=== PATIENT | male | born 1955 | race Caucasian/White ===

== ENCOUNTER → 2020-07-07 09:26 | Outpatient (BNVA) | payer BC, SELFPAY | PROVIDERS: Visit Provider Family Medicine Adult Medicine | DX: Z00.00 Encounter for general adult medical examination without abnormal findings (principal); R73.03 Prediabetes; R03.0 Elevated blood-pressure reading, without diagnosis of hypertension; J44.1 Chronic obstructive pulmonary disease with (acute) exacerbation; G89.29 Other chronic pain; R53.83 Other fatigue | CPT/HCPCS: 80053; 80061; 83036; 84443; 85025 ==

== ENCOUNTER → 2021-01-10 09:50 | Outpatient (BNVA) | payer MEDICARE, SELFPAY | PROVIDERS: Visit Provider Family Medicine Adult Medicine | DX: E78.5 Hyperlipidemia, unspecified (principal); I10 Essential (primary) hypertension; R53.83 Other fatigue; R73.03 Prediabetes | CPT/HCPCS: 80053; 80061; 83036; 85025 ==

== ENCOUNTER → 2022-02-28 10:14 | Outpatient (BNVA) | payer MEDICARE, SELFPAY | PROVIDERS: PCP Family Medicine Adult Medicine; Visit Provider Family Medicine Adult Medicine | DX: E78.5 Hyperlipidemia, unspecified (principal); R73.03 Prediabetes; I10 Essential (primary) hypertension | CPT/HCPCS: 80053; 80061; 83036 ==

== ENCOUNTER → 2022-03-11 08:11 | Outpatient (BNVA) | payer MEDICARE, SELFPAY | PROVIDERS: PCP Family Medicine Adult Medicine; Referring Provider Family Medicine Adult Medicine; Visit Provider Specialist | DX: M17.11 Unilateral primary osteoarthritis, right knee (principal); M25.361 Other instability, right knee; R09.02 Hypoxemia | CPT/HCPCS: 20610; 73560; 73565; 99203; 99204; J1100; J2795; J3301 ==

== ENCOUNTER 2022-03-18 13:18 | Outpatient (RCR) | payer MEDICARE, SELFPAY | END 2022-03-21 23:59 | disposition home or self-care (01) | LOC: SPT 13:18 | PROVIDERS: PCP Family Medicine Adult Medicine; Referring Provider Specialist; Visit Provider Specialist | DX: M25.561 Pain in right knee (principal) | CPT/HCPCS: 97162 ==

== ENCOUNTER 2022-03-22 06:00 | Outpatient (RCR) | payer MEDICARE, SELFPAY | END 2022-04-21 23:59 | disposition home or self-care (01) | LOC: SPT 06:00 | PROVIDERS: PCP Family Medicine Adult Medicine; Referring Provider Specialist; Visit Provider Specialist | DX: M25.561 Pain in right knee (principal) | CPT/HCPCS: 97110 ==

== ENCOUNTER → 2022-04-29 14:49 | Outpatient (BNVA) | payer MEDICARE, SELFPAY | PROVIDERS: PCP Family Medicine Adult Medicine; Visit Provider Specialist | DX: M17.11 Unilateral primary osteoarthritis, right knee (principal); M25.361 Other instability, right knee | CPT/HCPCS: 99214 ==

== ENCOUNTER 2022-05-08 06:00 | Outpatient (CLI) | payer MEDICARE, SELFPAY | END 2022-05-08 06:01 | disposition home or self-care (01) | LOC: LAB 07-18 08:57 | PROVIDERS: PCP Family Medicine Adult Medicine; Visit Provider Specialist | DX: Z01.89 Encounter for other specified special examinations (principal) | CPT/HCPCS: 80053; 81001; 85025 ==

== ENCOUNTER → 2022-05-08 12:29 | Day surgery (SDC) | payer MEDICARE, SELFPAY | PROVIDERS: PCP Family Medicine Adult Medicine; Visit Provider Specialist | DX: Z01.818 Encounter for other preprocedural examination (principal) | CPT/HCPCS: 93005; J2795 ==

== ENCOUNTER → 2022-06-10 12:49 | Outpatient (BNVA) | payer MEDICARE, SELFPAY | PROVIDERS: PCP Family Medicine Adult Medicine; Visit Provider Specialist | DX: M17.11 Unilateral primary osteoarthritis, right knee (principal) | CPT/HCPCS: 99214 ==

== ENCOUNTER 2022-06-11 13:20 | Observation (INO) | payer MEDICARE, SELFPAY ==
[2022-06-04 09:21] VITALS: BMI 36.0
[2022-06-04 10:36] LABS: Add Urine Culture? Yes; Add Urine Microscopic? YES; Bacteria Urine TRACE /hpf; Bilirubin Urine Neg (Negative); Blood Urine 2+ (Negative); Glucose Urine UA Norm (Normal); Ketones Urine Negative (Negative); Leukocyte Esterase Urine 1+ (Negative); Nitrate Urine Negative (Negative); Protein Urine Neg (Negative); RBC Urine 0-4 /hpf (0-2); Specific Gravity, Urine 1.015 (1.005-1.030); Squamous Epithelial Cell Urine 0-4 /hpf (0-5); Urine Appearance Clear (CLEAR); Urine Color Yellow (Yellow); Urobilinogen Urine Norm (Negative); WBC Urine 25-40 /hpf (0-5); pH Urine 5 (5-7)
--- NOTE | 2022-06-04 16:23 | P.ANESASSM_ITS ---
Pre-Anesthetic Assessment Height/Weight: Height 1.7 m Weight 104.326 kg Preop Diagnosis: Knee OA Operation Date: 06/11/22 07:00 Proposed Procedures p Right Total Knee Arthroplasty 19172,M17.10(Right) - Ana Powell MD Familial anesthetic complications: none Was Beta Kenny taken within 24 hours: N/A Was Clonidine taken within 24 hours: N/A Social Tobacco and No alcohol Exam alert, oriented x 3 and regular rate & rhythm Diminished breaths sounds b/l Airway Submandibular: within normal limits Cervical ROM: within normal limits Mallampati: Class II Comments: Comments: Upper partial Pulmonary Chronic Obstructive Pulmonary Disease CV/HEM Hypertension EKG 05/08/22 Interpretive Statements SINUS RHYTHM POSSIBLE LEFT ATRIAL ENLARGEMENT? [-0.1mV P-WAVE IN V1/V2] No previous ECG available for comparison Electronically Signed On 05-08-2022 17:20:14 CDT by Robert Lund M.D. [email or web address] Hepatic None reported GI None reported Metabolic Diabetes Mellitus and Hyperlipidemia [facility] [place] Osteoarthritis/DJD Neuropsych Anxiety, Depression and Neuropathy (Post herpetic neuralgia ) RLS Anesthetic Plan ASA status: 3 Anesthesia: Anesthesia Evaluation and Regional (specify below) (Spinal w/ adductor canal block for post op pain control) Other: We discussed risk and benefits of general vs spinal anesthesia including DVT risk, infection, paralysis/catastrophic nerve injury, back bruising/pain, PDPH, conversion to general in case of spinal, PONV, sore throat (sometimes severe), corneal abrasion, positioning and peripheral nerve injuries, life threatening allergic reaction, post operative ICU admission requiring prolonged intubation, stroke, heart attack, , post operative delirium and/or post operative cognitive decline, and rare incidences of recall (under general anesthesia). We discussed risk and benefits of nerve block for post op pain control including management of pain and titration of pain medications as signs/symptoms of nerve block wearing off begin to appear and/or prior bed. We discussed risk of failed nerve block, vascular injury or other vital structure injury, abscess/infection, LAST, and nerve injury. Patient elects spinal w/ adductor canal block for post op pain control. Risk of > 500 ml blood loss (7ml/kg in children): No Medications/Allergies Home Medications Medication Instructions Recorded Confirmed Last Taken Type lisinopril 20 mg tablet 20 mg PO DAILY High blood Pressure 03/01/22 06/04/22 Unknown Rx 90 days #90 tabs albuterol sulfate 2.5 mg (3 mL) inhalation QID PRN 05/22/22 06/04/22 Unknown Rx shortness of breath or wheezing #75 mL albuterol sulfate 90 mcg/actuation 2 puff inhalation Q6H PRN 05/22/22 06/04/22 Unknown Rx aerosol inhaler shortness of breath or wheezing #18 grams atorvastatin 20 mg tablet 20 mg PO DAILY 90 days #90 tabs 05/22/22 06/04/22 Unknown Rx bupropion HCl 150 mg tablet,12 hr 150 mg PO QAM 90 days #90 tabs 05/22/22 06/04/22 Unknown Rx sustained-release fluticasone propionate 110 1 puff inhalation BID #12 grams 05/22/22 06/04/22 Unknown Rx mcg/actuation HFA aerosol inhaler (Flovent HFA) gabapentin 300 mg capsule 300 mg PO TID post-shingles nerve 05/22/22 06/04/22 Unknown Rx pain #90 caps meloxicam 7.5 mg tablet 7.5 mg PO DAILY Joint pain #30 tabs 05/22/22 06/04/22 Unknown Rx sertraline 50 mg tablet 50 mg PO DAILY #90 tabs 05/22/22 06/04/22 Unknown Rx tramadol 50 mg tablet 50 mg PO Q8H PRN pain 30 days #45 05/22/22 06/04/22 Unknown Rx tabs sulfamethoxazole 800 1 tab PO BID #20 tabs 06/04/22 Unknown Rx mg-trimethoprim 160 mg tablet (Bactrim DS) Allergies Allergy/AdvReac Type Severity Reaction Status Date / Time cephalexin [From Keflex] Allergy rash Verified 05/22/22 15:10 hydrocodone AdvReac Intermediate itching Verified 05/22/22 15:10 PFSH Anesthesia Medical History Allergic rhinitis due to allergen Anxiety and depression Chronic leg pain COPD (chronic obstructive pulmonary disease) Fatigue Herpes zoster ophthalmicus of left eye Herpes zoster virus infection of face and ear nerves History of torn meniscus of left knee History of torn meniscus of right knee Hoarseness of voice Hyperlipidemia Hypertension Obesity (BMI 35.0-39.9 without comorbidity) Osteoarthritis Post-herpetic trigeminal neuralgia Pre-diabetes Smoker unmotivated to quit Surgical History Hx of appendectomy Hx of bilateral cataract extraction Hx of hernia repair Social History Smoking and tobacco status: current every day smoker (1ppd) cigarettes Packs smoked per day: 1.5 Years cigarettes smoked: 47 Second hand smoke exposure: Yes Alcohol intake: never Caregiver/support person: Yes Lives independently: Yes Household members: spouse Marital status: service: No Current occupational status: disabled History of recent travel: No Current gender identity: Male Special donald needs: No Data Anesthesia : 06/04/22 08:42 06/04/22 08:42 Short CBC 06/04/22 Range/Units 08:42 WBC Cancelled Hgb Cancelled Hct Cancelled MCV Cancelled Plt Count Cancelled Neut % (Auto) Cancelled Neut # (Auto) Cancelled BMP 06/04/22 08:42 Sodium Cancelled Potassium Cancelled Chloride Cancelled Carbon Dioxide Cancelled BUN Cancelled Creatinine Cancelled Glucose Cancelled Calcium Cancelled Urine 06/04/22 Range/Units 09:30 Urine Color Yellow (Yellow) Urine Appearance Clear (CLEAR) Urine pH 5 (5-7) Ur Specific [place] 1.015 (1.005-1.030) Urine Protein Neg (Negative) Urine Glucose (UA) Norm (Normal) Urine Ketones Negative (Negative) Urine Nitrate Negative (Negative) Urine Bilirubin Neg (Negative) Ur Leukocyte Esterase 1+ H (Negative) Urine RBC 0-4 H (0-2) /hpf Urine WBC 25-40 H (0-5) /hpf Cardiac Studies: No Data to Display
[2022-06-11] VITALS (26 sets, daily range): BP systolic 107–144; BP diastolic 58–79; PULSE 75–109; RESP 14–23; TEMP 36.4–36.9; O2SAT 92–95
[2022-06-11] MEDS: acetaminophen 1,000 MG/100 ML PIGGYBACK 400 MG IV ×3 (06:10→21:00)
[2022-06-11] MEDS: sodium chloride 0.9% 1,000 ML 30 ML IV (06:10)
[2022-06-11] MEDS: CELEcoxib 200 mg Capsule 400 MG PO (06:11)
--- NOTE | 2022-06-11 06:25 | P.ANESUD_ITS ---
Pre-Anesthetic Update Pre-Anesthetic Assessment: Date of Surgery/Procedure: 06/11/22 Preop Thea gnosis: DJD right knee Proposed Procedure: Operation Date: 06/11/22 07:00 Proposed Procedures p Right Total Knee Arthroplasty 95101,M17.10(Right) - Ana Powell MD Any changes to Pre-Anesthetic Assessment?: No Last Intake: Intake Last Liquid Date 06/10/22 Last Liquid Time 18:00 Last Solid Date 06/10/22 Last Solid Time 18:00 Vitals: Temperature 98.4 F 06/11/22 05:47 Temperature Source Temporal Artery S can 06/11/22 05:47 Pulse Rate 90 06/11/22 05:47 Pulse Rhythm 06/11/22 05:47 Pulse Strength 3+ Normal 06/11/22 05:47 Respiratory Rate 18 06/11/22 05:47 Blood Pressure 136/79 06/11/22 05:47 Blood Pressure Afshan n 98 06/11/22 05:47 Pulse Oximetry 93 06/11/22 05:47 Oxygen Delivery Me thod 06/11/22 05:47 Exam: Pre-Anes Outpt Exam: alert, oriented x 3, clear to auscultation bilaterally and regular rate & rhythm Cardiac Studies: No Data to Display
--- NOTE | 2022-06-11 06:57 | W.PM.OPSUD ---
Surgery/Procedure H&P Update DATE OF PROCEDURE: June 11, 2022 DATE H&P PERFORMED: 06/10/22 H&P UPDATE INFORMATION: I have reviewed H&P completed within last 30 days, I have examined patient prior to procedure, No changes to prior documentation and H&P is in [facility] on date indicated PREOP DIAGNOSIS: DJD right knee PLANNED PROCEDURE: Operation Date: 06/11/22 07:00 Proposed Procedures p Right Total Knee Arthroplasty 90891,M17.10(Right) - Ana Powell MD Related Problem List Diagnoses (1) Primary osteoarthritis of right knee:
[2022-06-11] MEDS: vancomycin 1,000 MG in sodium chloride 0.9% 250 ML 250 MG IV (07:02)
[2022-06-11 07:18] LABS: Basophils # 0.1 10^3/uL (0.0-0.1); Basophils % 0.7 %; Eosinophils # 0.5 10^3/uL (0.0-0.8); Hematocrit 46.3 % (42.0-52.0); Hemoglobin 14.8 g/dL (11.7-16.6); Lymphocytes # 1.6 10^3/uL (0.8-4.8); Lymphocytes % 17.5 %; Mean Corpuscular Volume 103.3 fl (80-94); Mean Platelet Volume 9.5 fL (7.4-10.4); Monocytes # 1.2 10^3/uL (0.2-0.9); Neutrophils # 5.59 10^3/uL (1.8-7.7); Neutrophils % 62.1 %; Nucleated Red Blood Cells % 0 %; Platelet Count 267 10^3/cmm (130-400); Red Blood Count 4.48 10^6/uL (4.1-5.3); Red Cell Distribution Width 12.6 % (12.1-15.1)
--- NOTE | 2022-06-11 07:24 | ANES.PROC ---
Anesthesia Procedures Procedure/Date: 06/11/22 Nerve Block ^: Nerve Block 1: Main Anesthesia: spinal anesthesia block Time Out Performed: Yes Consent: requested by attending/covering physician, from patient, risks and benefits reviewed and patient agrees to proceed Nerve block location: adductor canal Anesthesia monitors applied: pulse oximetry and BP cuff Nerve block position: semi sitting Anesthetic Used: ropivicaine 0.5% Amount of anesthesia used (mL): 20 Ultrasound used to: recognize landmarks, visualize and ID brachial plexus and visualize and ID femerol nerve Nerve Stimulator Used?: No Interscalene/Femoral BLK: 4 stimuplex 21 g needle used for position and inplane approach, visualize local anesthetic spread and no vascular puncture identified Injection: neg aspiration of heme Patient Tolerated Procedure: well Complications: none Additional Comments: After time out sterile prep, using sterile technique, and using real time US guidance for target selection needle was inserted with real time visualization of needle entry and real time visualization of needle advancement toward intended target. Negative aspiration. LA injected incrementally with negative aspiration every 5 cc and real time US visualization of LA spread throughout procedure. Tolerated well. Image(s) saved.
[2022-06-11 07:43] LABS: Alanine Aminotransferase 28 U/L (0-41); Albumin Level 4.5 g/dL (3.5-5.2); Alkaline Phosphatase 81 U/L (40-130); Anion Gap 14.7 (5-19); Aspartate Amino Transferase 18 U/L (0-40); Blood Urea Nitrogen 23 mg/dL (8-23); Calcium 9.4 mg/dL (8.5-10.5); Carbon Dioxide 28 mmol/L (22-29); Chloride 99 mmol/L (98-107); Glomerular Filtration Rate 74.1 mL/min (90-130); Glucose 117 mg/dL (65-115); Osmolality Calculated 289 mOsm/kg (285-295); Potassium 4.7 mmol/L (3.5-5.1); Sodium 137 mmol/L (136-145); Total Bilirubin 0.2 mg/dL (0.15-1.2); Total Protein 6.5 g/dL (6.6-8.7)
[2022-06-11] MEDS: vancomycin 1,000 MG SDV 2000 MG IRRIGATION (08:16)
[2022-06-11] MEDS: vancomycin 1,000 MG SDV 1000 MG XX (08:16)
[2022-06-11] MEDS: tranexamic acid 1,000 mg/10mL SDV 1000 MG IV (09:01)
--- NOTE | 2022-06-11 10:10 | P.OP_ITS ---
Operative Report Date of procedure: June 11, 2022 Pre-op diagnosis: Primary osteoarthritis right knee with flexion contracture Post-op diagnosis: Primary osteoarthritis right knee with flexion contracture Post-op findings: Severe degenerative osteoarthritic change with flexion contracture and movement of cartilage Procedure done: Right total knee arthroplasty Implants: The [place] total knee system with a size 6 triathlon beaded posterior stabilized femur right, a triathlon titanium tibial component size 5 beaded, a triathlon X3 posterior stabilized tibial bearing insert size 5 X 13 mm and a beaded triathlon titanium asymmetric patella size 35 x 10 mm Specimens removed/disposition: Bone, disposed of Pathology: none sent Surgeon: Ana Powell Ornamental Ironworker Helper: [facility] operating room technicians Anesthesia: MAC (With spinal, ASA 3) Estimated blood loss (mL): 200 Tourniquet time (min): 59 (At 250 mmHg) IV fluids (mL): 800 Urine output (mL): 400 Complications: None Findings: Severe degenerative osteoarthritic changes with flexion contracture and large osteophytes Condition: stable Disposition: PACU (Then to floor for postoperative rehabilitation and pain management) Brief History: Tirso Ennis is a 66-year-old gentleman who presented to my office with complaints of severe right knee pain limiting his activities of daily living significantly. Prior to being scheduled for operative intervention, the patient had formal physical therapy and also had cortisone injections to his knee. He took anti-inflammatory medications as well. The patient continued with the pain rating 5 out of 10. Cortisone lasted him only 1 day. Physical therapy was of some benefit, but it did not give him adequate functional relief or improvement in his activities of daily living that was significant. After these outcomes, the patient wished to proceed with operative intervention in the form of total knee arthroplasty. He had been scheduled earlier in April, but insurance approval had not been obtained at that time. Today the patient presents for total knee arthroplasty. Consents have been signed in the office and questions answered. Procedure: The patient was brought to the operating theater, and after undergoing adequate spinal anesthesia supplemented with adductor canal block and MAC, ASA 3, the right lower extremity was prepped with Dura-Prep and draped in usual fashion following placement of a tourniquet high on the leg. The leg was then draped free. Following prepping and draping, the leg was exsanguinated, and the tourniquet was elevated to 250 mmHg for a total tourniquet time of 59 minutes.? Prior to elevation of the tourniquet, but following exposure of the site of surgery, a surgical pause was performed. At the time of the surgical pause, we confirmed the site and side of surgery. Additionally, we confirmed the appropriate and timely administration of preoperative antibiotics, vancomycin 1 g and Transexemic acid 1 g.? The availability of equipment was confirmed, and the patient's identity was verbalized as well.? An additional transexemic acid 1 g was given at the end of the surgical procedure as well. Following the surgical pause, an incision was made centering over the patella continuing proximally and distally as necessary to allow access to the knee joint. Dissection continued through skin and soft tissues using a scalpel. Hemostasis was obtained using electrocautery. The skin incision was followed by a median parapatellar arthrotomy. The leg was extended and the patella was everted. Following this, the leg was returned to flexed position.? There was eburnation particularly of the medial femoral condyle.? There were large osteophytes circumferentially about the trochlear groove as well as the patella and medial tibial plateau.? Resection of osteophytes was accomplished to allow for appropriate placement of the intraoperative jogging system.? Distal femur was exposed, and a drill hole was made in this for placement of the distal femoral jig. The distal femoral jig was set at 5? of valgus. The distal femoral cutting block was then placed in appropriate position, and an aníbal wing was used to confirm an appropriate amount of distal femur would be resected.? The distal femoral resection was accomplished with 10 mm of bone being resected distally due to preoperative flexion contracture.? After the distal femoral resection was accomplished, the femur was measured, and it measured a size 6.? Medial lateral dimension also measured a size 6.? A size 6 femoral cutting block was placed in position, and we were then able to accomplish the anterior, posterior and chamfer cuts. This jig was then removed, and the notch guide was placed in position. With the notch guide in appropriate position, the notch was excised including resection of the anterior and posterior cruciate ligaments. This notch was to allow for the posterior stabilized femoral component. At this point, the femur was prepared and attention was directed to the proximal tibia.? The posterior knee retractor was placed along with medial and lateral retracto rs. Further resection of the menisci was accomplished as we had better visualization. A complete meniscectomy was performed both medially and laterally with care being taken to protect the popliteus. Retractors were then placed so that the proximal tibia was well visualized. A drill hole was then made in the tibia for placement of the intramedullary guide. This guide was placed so that approximately 2 mm of bone would be resected from the deficient medial tibial plateau. The intramedullary guide was utilized supplemented with an extramedullary guide to assure appropriate alignment for the proximal tibial resection. The proximal tibial jig was then evaluated, pinned in position, and the proximal tibial resection was accomplished without difficulty.? The jig was removed, and the proximal tibia was measured. It measured a size 5.? Further resection of osteophytes was able to be accomplished at this time.? We also removed osteophytes from the posterior femoral condyles following proximal t ibial resection.? We then attempted a trial reduction with a size 5 by 9 mm.? A medial release was accomplished.? The femoral component was placed in position for the trial reduction, and the knee was placed through range of motion.? We then increased to a size 5 x 11 mm insert, and subsequently, insert size was increased to 5 x 13 mm.? With this, there was appropriate patellar tracking. Extension was noted to be full as well.? With had excellent varus valgus alignment, and the knee was stable to varus valgus stress as well.? Therefore, these were the chosen components.? There was full extension and flexion without lift off and the rotation of the tibia was marked.? Alignment was checked from the hip to the ankle, and this was noted to be appropriate as well. Attention was then directed to the patella. The patella was measured with a caliper.? We resected sufficient patella to leave approximately 14 mm of patella remaining.? Measurements of the patella then indicated that a size asymmetric 35 mm x 10 mm was the appropriate patellar size. We then placed the jig to drill for the 3 pegs of the press-fit patella, and these drill holes were made without incident. A trial patella was then placed, and the knee was placed through range of motion. The patella was noted to track nicely without evidence of subluxation.? The femur was prepared for a press-fit femur by drilling 2 holes for the femoral pegs.? All trial components were subsequently removed. The tibial tray was then pinned into position, and we broached the tibia for the stem of the tibial component.? Subsequently, 4 drill holes were made for placement of the press-fit tibia.? This was accomplished without difficulty. Care was taken to assure appropriate rotation of the tibia as well as appropriate position on the proximal tibia. The tibial tray was completely seated on the proximal tibia. Following broaching, the tibial guide was removed, and all surfaces were copiously irrigated. The surfaces were then dried and a bone plug was placed into the distal femur.? Exparel was also subsequently injected. The Tritanium tibia was impacted into position.? The beaded femur was then impacted into position in a cementless fashion. The tibial insert was placed. The patella was pressed into position with a patellar clamp.? The knee was then copiously irrigated with betadine and saline and suctioned dry. Attention was then directed to closure. Closure was accomplished with 0 Vicryl in the fascial tissues.? Following this, a 2-0 Monocryl was used in the subcutaneous tissues, and the skin was closed with skin mary.? Care was taken to assure an excellent subcutaneous as well as skin closure.? A sterile dressing was then placed consisting of Dermabond Prineo, Telfa, OpSite, sterile soft roll including over the foot, and an Gary wrap. The patient was returned the Recovery Room in a satisfactory condition. X-rays were obtained and reviewed there.? The patient will be discharged to the floor for postoperative rehabilitation and pain management. Related Problem List Diagnoses (1) Primary osteoarthritis of right knee: (2) Status post total right knee replacement not using cement:
--- NOTE | 2022-06-11 10:11 | XRR_ITS ---
PROCEDURE INFORMATION: Exam: XR Right Knee Exam date and time: 06/11/2022 10:13 AM Age: 67 years old Clinical indication: Device placement; Joint replacement hardware; Prior surgery; Surgery date: Post-operative (0-2 days); Surgery type: Status post total knee arthroplasty TECHNIQUE: Imaging protocol: Radiologic exam of the Right knee. Views: 1 or 2 views. AP and Lateral COMPARISON: CR XR knees AP WB w RT lmt ORTH 03/11/2022 8:16 AM FINDINGS: Bones/joints: Recent postsurgical changes are seen status post 3 component total knee arthroplasty. There is expected postsurgical alignment. There are no fractures or dislocations. Soft tissues: There is soft tissue gas and swelling seen, related to the recent surgery. Nodes anterior midline knee region skin mary are seen. There are no radiopaque foreign bodies. Notes: Followup radiographs may be obtained for complete assessment. XR/XR knee RT 1-2V [id number] IMPRESSION: Postsurgical changes of the knee status post 3 component total knee arthroplasty, as noted above.
--- NOTE | 2022-06-11 10:23 | SUR.PHASEI ---
1005 PT TO PACU 5 PT AWAKE ALERT TALKATIVE, MONITOR SR NO ECTOPY NOTED IV TO RT HAND #20 WITH NS 100ML AT KVO RATE PER GRAVITY ID BRACELET TO LT WRIST PT ID'D WITH 2 IDENTIFIERS. RT KNEE DRESSING D/I WITH FIRST ICE TO KNEE DISTAL FOOT PINK WARM WITH STRONG REGULAR PULSE TO RT FOOT. WARM BLANKETS TO PT.
[2022-06-11] MEDS: fentaNYL 50 mcg/mL INJ 2mL IVP (10:33)
--- NOTE | 2022-06-11 10:36 | SUR.PHASEI ---
PT COMPLAINS OF BURNING PAIN TO TOP OF KNEE, PT SPINAL ANESTHESIA IS WELL BELOW T10 LEVEL PT ABLE TO BEND LT KNEE FREELY AND MOVES BILAT TOES TO COMMAND, PT HAS NORMAL SENSATION TO KNEE LEVEL WITH SOME TINGLING PT RATES KNEE PAIN 7/10 SEE FENANYL GIVEN, VSS.
--- NOTE | 2022-06-11 10:41 | SUR.PHASEI ---
PT SATS DOWN TO 88% PT DOZING OFF AND ON, PT ENCOURAGED TO COUGH AND DEEP BREATH. PT PLACED ON 2LNC SATS UP TO 93%, NO DISTRESS NOTED.
--- NOTE | 2022-06-11 10:43 | SUR.PHASEI ---
CARO CATHETER PATENT OF YELLOW URINE TO TUBING, STATLOCK TO LT THIGH.
--- NOTE | 2022-06-11 10:51 | SUR.PHASEI ---
PT TAKING ICE CHIPS STATES PAIN IS (MUCH BETTER) PT NOW OUT OF PHASE 1 AND PT TO OPS BAY 12 FOR HOLDING FOR A ROOM, MONITOR UNCHANGED RT KNEE DRESSINGD/I DISTAL FOOT UNCHANGED STRONG REGULAR PULSE NOTED.
--- NOTE | 2022-06-11 11:13 | SUR.PHASEI ---
PT AWAKE ALERT GIVEN SPRITE TO SIP ON , CLEAR DIET ORDERED , PT S/O CALLED AND WILL COME BACK TO ROOM SOON.
[2022-06-11] MEDS: oxyCODONE 5 mg IR Tab/Cap PO ×3 (11:29→20:51)
[2022-06-11] MEDS: lisinopril 20 mg Tablet PO (11:50)
[2022-06-11] MEDS: atorvastatin 40 mg Tablet 20 MG PO (11:52)
[2022-06-11] MEDS: nicotine 21 mg Patch 1 PATCH TRANSDERMA (11:52)
[2022-06-11 12:16] LABS: Add Urine Culture? No; Add Urine Microscopic? YES; Bacteria Urine TRACE /hpf; Bilirubin Urine Neg (Negative); Blood Urine 2+ (Negative); Calcium Oxalate Crystals Urine 0-4 /hpf; Glucose Urine UA Norm (Normal); Ketones Urine Negative (Negative); Leukocyte Esterase Urine Negative (Negative); Nitrate Urine Negative (Negative); Protein Urine Neg (Negative); RBC Urine 0-4 /hpf (0-2); Squamous Epithelial Cell Urine 0-4 /hpf (0-5); Urine Appearance Clear (CLEAR); Urine Color Yellow (Yellow); Urobilinogen Urine Norm (Negative); pH Urine 5 (5-7)
--- NOTE | 2022-06-11 12:17 | ANE.PACU2 ---
Inpatient post-anesthesia follow up: Airway intact: Yes Vital signs: Temperature 97.9 F Pulse Rate 75 Respiratory Rate 19 Blood Pressure 136/72 Pulse Oximetry 95 Oxygen Delivery Me thod Nasal Cannula Oxygen Flow Rate 2 Fraction of Inspir ed Oxygen Hydration adequate: Yes Nausea and vomiting: No Pain level: 7 Mental status: Baseline
--- NOTE | 2022-06-11 12:53 | SUR.PHASEI ---
PT AWAKE ALERT TALKATIVE WITH S/O IN ROOM KNEE DRESSING D/I FIRST ICE TO KNEE DISTAL FOOT PINK WARM PT DENIES PAIN AND OR ANY REACTION TO MEDS STARTED EARLIER, PT DRINKING SPRITE AND ATE JELLO, PT WITH NO COMPLAINTS AT THIS TIME, WAITING TO GIVE REPORT TO FLOOR NURSE.
--- NOTE | 2022-06-11 13:33 | SUR.PHASEI ---
PT TO FLOOR PER BED , S/O WALKED UP WITH PT BAG AND WALKER, PT AWAKE ALERT TALKATIVE, DENEIS PAIN VSS PT TO ROOM 270 HANDOFF AT BEDSIDE WITH FLOOR RN.
[2022-06-11] MEDS: sertraline 50 mg Tablet PO (14:19)
[2022-06-11] MEDS: gabapentin 300 mg Capsule PO ×2 (14:19→20:52)
[2022-06-11] MEDS: chlorhexidine gluconate 0.12% Btl 473 mL 30 ML MUCOUS MEM ×3 (14:19→20:52)
[2022-06-11] MEDS: TRAMadol 50 mg Tablet PO ×2 (14:39→22:50)
[2022-06-11] MEDS: iron polysaccharide complex 150 mg Capsule PO (17:26)
[2022-06-11] MEDS: calcium carbonate 500 mg Chew Tablet 1000 MG PO (17:26)
[2022-06-11] MEDS: CELEcoxib 200 mg Capsule PO (17:27)
[2022-06-11] MEDS: sennosides-docusate Tablet 2 TAB PO (17:27)
[2022-06-11] MEDS: mupirocin oint 22 gm 1 APPLIC NASAL (17:27)
[2022-06-12] VITALS (8 sets, daily range): BP systolic 88–118; BP diastolic 52–61; PULSE 80–100; RESP 16–20; TEMP 36.3–36.9; O2SAT 92–95
[2022-06-12 02:52] LABS: Basophils # 0.1 10^3/uL (0.0-0.1); Basophils % 0.3 %; Eosinophils # 0.3 10^3/uL (0.0-0.8); Hematocrit 38.5 % (42.0-52.0); Lymphocytes # 1.3 10^3/uL (0.8-4.8); Lymphocytes % 8.6 %; Mean Corpuscular HGB Conc 31.2 g/dL (30.0-36.0); Mean Corpuscular Hemoglobin 33.1 pg (28.0-34.0); Mean Corpuscular Volume 106.1 fl (80-94); Mean Platelet Volume 9.7 fL (7.4-10.4); Monocytes # 1.8 10^3/uL (0.2-0.9); Monocytes % 11.6 %; Neutrophils # 11.94 10^3/uL (1.8-7.7); Nucleated Red Blood Cells % 0 %; Platelet Count 226 10^3/cmm (130-400); Red Blood Count 3.63 10^6/uL (4.1-5.3); Red Cell Distribution Width 12.6 % (12.1-15.1); White Blood Count 15.5 10^3/uL (4.0-10.0)
[2022-06-12 03:25] LABS: Anion Gap 12.1 (5-19); Blood Urea Nitrogen 28 mg/dL (8-23); Calcium 9.3 mg/dL (8.5-10.5); Carbon Dioxide 28 mmol/L (22-29); Chloride 104 mmol/L (98-107); Creatinine Clr Calc Pharmacy 72.9636; Glomerular Filtration Rate 66.4 mL/min (90-130); Glucose 128 mg/dL (65-115); Osmolality Calculated 295 mOsm/kg (285-295); Potassium 5.1 mmol/L (3.5-5.1); Sodium 139 mmol/L (136-145)
[2022-06-12] MEDS: oxyCODONE 5 mg IR Tab/Cap PO ×3 (04:13→12:54)
[2022-06-12] MEDS: buPROPion SR (12 HR) 150 mg Tablet PO (06:14)
[2022-06-12] MEDS: CELEcoxib 200 mg Capsule PO (06:15)
[2022-06-12] MEDS: acetaminophen 1,000 MG/100 ML PIGGYBACK 400 MG IV (06:15)
[2022-06-12] MEDS: vancomycin 1,000 MG in sodium chloride 0.9% 250 ML 250 MG IV (06:37)
[2022-06-12] MEDS: TRAMadol 50 mg Tablet PO (06:37)
[2022-06-12] MEDS: calcium carbonate 500 mg Chew Tablet 1000 MG PO (08:11)
[2022-06-12] MEDS: cholecalciferol (vitamin D3) 1,000 unit Tablet 1000 UNIT PO (08:11)
[2022-06-12] MEDS: sertraline 50 mg Tablet PO (08:11)
[2022-06-12] MEDS: atorvastatin 40 mg Tablet 20 MG PO (08:11)
[2022-06-12] MEDS: iron polysaccharide complex 150 mg Capsule PO (08:11)
[2022-06-12] MEDS: gabapentin 300 mg Capsule PO (08:12)
[2022-06-12] MEDS: multivitamin therapeutic Tablet 1 TAB PO (08:12)
[2022-06-12] MEDS: sennosides-docusate Tablet 2 TAB PO (08:12)
[2022-06-12] MEDS: nicotine 21 mg Patch 1 PATCH TRANSDERMA (08:12)
[2022-06-12] MEDS: lisinopril 20 mg Tablet PO (08:12)
[2022-06-12] MEDS: aspirin 325 mg EC Tablet PO (08:12)
[2022-06-12] MEDS: chlorhexidine gluconate 0.12% Btl 473 mL 30 ML MUCOUS MEM (08:13)
[2022-06-12] MEDS: mupirocin oint 22 gm 1 APPLIC NASAL (08:13)
[2022-06-12] MEDS: albuterol 8 gm MDI 2 PUFF INHALATION (08:23)
--- NOTE | 2022-06-12 13:29 | PM.DCS ---
Discharge Providers Date of Admission: 06/11/22 13:20 Date of Discharge: June 12, 2022 Attending Provider at Admission: Ana Powell MD Attending Provider at Discharge: Ana Powell MD Primary Care Provider: Bethel Cruz MD Diagnoses at Discharge Discharge Diagnosis (1) Primary osteoarthritis of right knee: Status: Acute (2) Status post total right knee replacement not using cement: Status: Acute Permanent problem details: Date of procedure: June 11, 2022 Diagnosis: Primary osteoarthritis right knee with flexion contracture Procedure done: Right total knee arthroplasty Implants: The Fanear total knee system with a size 6 triathlon beaded posterior stabilized femur right, a triathlon titanium tibial component size 5 beaded, a triathlon X3 posterior stabilized tibial bearing insert size 5 X 13 mm and a beaded triathlon titanium asymmetric patella size 35 x 10 mm Reason for Visit Reason for Visit: Brief History: Tirso Ennis is a 66-year-old gentleman who presented to my office with complaints of severe right knee pain limiting his activities of daily living significantly.? Prior to being scheduled for operative intervention, the patient had formal physical therapy and also had cortisone injections to his knee.? He took anti-inflammatory medications as well.? The patient continued with the pain rating 5 out of 10.? Cortisone lasted him only 1 day.? Physical therapy was of some benefit, but it did not give him adequate functional relief or improvement in his activities of daily living that was significant.? After these outcomes, the patient wished to proceed with operative intervention in the form of total knee arthroplasty.? He had been scheduled earlier in April, but insurance approval had not been obtained at that time.? The patient presented for total knee arthroplasty.? Consents have been signed in the office and questions answered. Hospital Course Hospital Course Patient was admitted following same-day surgery for right total knee arthroplasty on June 19, 2022. On the first postoperative day, the patient was doing well. He was working with physical therapy and was independent in his ambulation. In discussion with therapy and the nurses, it was felt that he was safe for discharge to home. His significant other was in agreement. Dressings were removed. The wound was benign. We did leave the OpSite in place without removal. There was no evidence of DVT. After the patient was evaluated, plans were made for his discharge. He will follow-up with me in the office as previously arranged. Physical Exam Const: COMMON NORMALS: no acute distress, average body habitus, patient oriented x3 and alert GENERAL APPEARANCE: cooperative and comfortable ORIENTATION/CONSCIOUSNESS: Yes awake HENMT: COMMON NORMALS: normocephalic and atraumatic HEAD & SCALP: normocephalic and atraumatic Eye: GENERAL EYE: appearance normal, both eyes and all related structures Chest: COMMONS NORMALS: normal inspection of the chest Resp: COMMON NORMALS: normal respiratory effort EFFORT & INSPECTION: Yes able to speak in complete sentences and Yes symmetric chest movement Extremity: RIGHT LOWER EXTREMITY: Yes knee joint (Dressings are removed, no evidence of DVT) Right knee: Yes palpation (Minimal to no tenderness.), Yes ROM (Not evaluated.) and Yes neurovascular exam (Intact distally.) Neuro: COMMON NORMALS: patient oriented x3 SENSORIUM/ORIENTATION: Yes alert Psych: COMMON NORMALS: mental status grossly normal APPEARANCE: Yes grossly normal ATTITUDE: Yes calm and Yes engaged ATTENTION/CONCENTRATION: Yes attention grossly intact Skin: COMMON NORMALS: no rashes or lesions noted GENERAL SKIN EXAM: no rashes or lesions noted Urinary Catheter Management: Alva: Cath Placed During This Visit: yes, but has since been removed by the nurse Reason for Continuing Indwelling Catheter: Decision to DC Catheter Urinary Catheter Date of Insertion: 06/11/22 Urinary Catheter Time of Insertion: 07:20 Date Urinary Catheter Removed: 06/12/22 Time Urinary Catheter Discontinued: 06:23 Discharge Data Studies Completed and Pending Completed Studies During Hospitalization Category Date Time Status XR knee RT 1-2V 85231 Urgent Exams 06/11/22 10:11 Completed Radiology Impressions Knee X-Ray 06/11/22 10:11 IMPRESSION: Postsurgical changes of the knee status post 3 component total knee arthroplasty, as noted above. Laboratory Results WBC 15.5 10^3/uL (4.0-10.0) H 06/12/22 02:18 Corrected WBC Cancelled 06/04/22 08:42 RBC 3.63 10^6/uL (4.1-5.3) L 06/12/22 02:18 Hgb 12.0 g/dL (11.7-16.6) 06/12/22 02:18 Hct 38.5 % (42.0-52.0) L 06/12/22 02:18 MCV 106.1 fl (80-94) H 06/12/22 02:18 MCH 33.1 pg (28.0-34.0) 06/12/22 02:18 MCHC 31.2 g/dL (30.0-36.0) 06/12/22 02:18 RDW 12.6 % (12.1-15.1) 06/12/22 02:18 Plt Count 226 10^3/cmm (130-400) 06/12/22 02:18 MPV 9.7 fL (7.4-10.4) 06/12/22 02:18 Gran % Cancelled 06/04/22 08:42 Neut % (Auto) 77.0 % 06/12/22 02:18 Lymph % (Auto) 8.6 % 06/12/22 02:18 [place] % (Auto) 11.6 % 06/12/22 02:18 Eos % (Auto) 2.0 % 06/12/22 02:18 Baso % (Auto) 0.3 % 06/12/22 02:18 Neut # (Auto) 11.94 10^3/uL (1.8-7.7) H 06/12/22 02:18 Lymph # (Auto) 1.3 10^3/uL (0.8-4.8) 06/12/22 02:18 [place] # (Auto) 1.8 10^3/uL (0.2-0.9) H 06/12/22 02:18 Eos # (Auto) 0.3 10^3/uL (0.0-0.8) 06/12/22 02:18 Baso # (Auto) 0.1 10^3/uL (0.0-0.1) 06/12/22 02:18 Absolute Gran (auto) Cancelled 06/04/22 08:42 Nucleated RBC % (auto) 0 % 06/12/22 02:18 Nucleated RBCs # 0.0 /100WBC 06/12/22 02:18 Sodium 139 mmol/L (136-145) 06/12/22 02:18 Potassium 5.1 mmol/L (3.5-5.1) 06/12/22 02:18 Chloride 104 mmol/L (98-107) 06/12/22 02:18 Carbon Dioxide 28 mmol/L (22-29) 06/12/22 02:18 Anion Gap 12.1 (5-19) 06/12/22 02:18 BUN 28 mg/dL (8-23) H 06/12/22 02:18 Creatinine 1.1 mg/dL (0.7-1.2) 06/12/22 02:18 GFR Calculation 66.4 mL/min (90-130) L 06/12/22 02:18 Glucose 128 mg/dL (65-115) H 06/12/22 02:18 Calculated Osmolality 295 mOsm/kg (285-295) 06/12/22 02:18 Calcium 9.3 mg/dL (8.5-10.5) 06/12/22 02:18 Total Bilirubin 0.2 mg/dL (0.15-1.2) 06/11/22 06:17 AST 18 U/L (0-40) 06/11/22 06:17 ALT 28 U/L (0-41) 06/11/22 06:17 Alkaline Phosphatase 81 U/L (40-130) 06/11/22 06:17 Total Protein 6.5 g/dL (6.6-8.7) L 06/11/22 06:17 Albumin 4.5 g/dL (3.5-5.2) 06/11/22 06:17 Globulin 2.0 g/dL (1.3-4.6) 06/11/22 06:17 Urine Color Yellow (Yellow) 06/11/22 11:40 Urine Appearance Clear (CLEAR) 06/11/22 11:40 Urine pH 5 (5-7) 06/11/22 11:40 Ur Specific [place] 1.020 (1.005-1.030) 06/11/22 11:40 Urine Protein Neg (Negative) 06/11/22 11:40 Urine Glucose (UA) Norm (Normal) 06/11/22 11:40 Urine Ketones Negative (Negative) 06/11/22 11:40 Urine Blood 2+ (Negative) H 06/11/22 11:40 Urine Nitrate Negative (Negative) 06/11/22 11:40 Urine Bilirubin Neg (Negative) 06/11/22 11:40 Urine Urobilinogen Norm mg/dL (Negative) 06/11/22 11:40 Ur Leukocyte Esterase Negative (Negative) 06/11/22 11:40 Urine RBC 0-4 /hpf (0-2) H 06/11/22 11:40 Urine WBC 5-10 /hpf (0-5) H 06/11/22 11:40 Ur Squamous Epith Cells 0-4 /hpf (0-5) H 06/11/22 11:40 Calcium Oxalate Crystal 0-4 /hpf H 06/11/22 11:40 Amorphous Sediment Not Reportable 06/11/22 11:40 Urine Bacteria Trace /hpf (NONE) 06/11/22 11:40 Vitals Last Vital Signs Temp 98.4 F 06/12/22 11:34 Pulse 96 06/12/22 11:34 Resp 18 06/12/22 12:54 BP 88/52 06/12/22 11:34 Pulse Ox 95 06/12/22 12:54 O2 Del Method 06/12/22 08:30 O2 Flow Rate 2 06/11/22 14:23 Discharge Plan Discharge Patient Disposition: Home Health Service Condition: Stable Prescriptions: New acetaminophen 500 mg Tablet 1,000 mg PO Q8H 15 Days Qty: 90 0RF aspirin 325 mg Tablet,Delayed Release (Dr/Ec) 325 mg PO DAILY 30 Days Qty: 30 0RF oxycodone 5 mg Tablet 5 mg PO Q4H PRN (Reason: Moderate Pain) 7 Days Qty: 30 0RF Continued gabapentin 300 mg capsule 300 mg PO TID Qty: 90 3RF meloxicam 7.5 mg tablet 7.5 mg PO DAILY Qty: 30 3RF Rx Instructions: take With food sertraline 50 mg tablet 50 mg PO DAILY Qty: 90 1RF tramadol 50 mg tablet 50 mg PO Q8H PRN (Reason: pain) 30 Days Qty: 45 1RF atorvastatin 20 mg tablet 20 mg PO DAILY 90 Days Qty: 90 3RF bupropion HCl 150 mg tablet sustained-release 12 hr 150 mg PO QAM 90 Days Qty: 90 1RF albuterol sulfate 90 mcg/actuation HFA aerosol inhaler 2 puff INHALATION Q6H PRN (Reason: shortness of breath or wheezing) Qty: 18 2RF albuterol sulfate 2.5 mg /3 mL (0.083 %) solution for nebulization 2.5 mg INHALATION QID PRN (Reason: shortness of breath or wheezing) Qty: 75 2RF fluticasone propionate [Flovent HFA] 110 mcg/actuation HFA aerosol inhaler 1 puff inhalation BID Qty: 12 5RF Rx Instructions: administer with spacer lisinopril 20 mg tablet 20 mg PO DAILY 90 Days Qty: 90 2RF sulfamethoxazole-trimethoprim [Bactrim DS] 800-160 mg tablet 1 tab PO BID Qty: 20 0RF Discharge Orders: Discharge Order (Routine); Ordered 06/12/22 Ordered By: Ana Powell Referrals: [facility] [Outside] Ana Powell MD [Physician] - 06/25/22 2:30 pm Discharge Diet: Advance as tolerated and Usual diet Discharge Activity: Increase activity as tolerated, Limit activity as instructed, Use walker/crutches as instructed and As per PT/OT instructions Patient Instructions: Acetaminophen (By mouth), Aspirin (By mouth), Oxycodone, Rapid Release (By mouth), Precautions after Total Joint Replacement Surgery (ED), Knee Replacement (GEN), Joint Replacement Stoplight Activity Restrictions/Additional Instructions: You may weight-bear as tolerated. Range of motion, gait training, and strengthening per physical therapy. You may remove your large outer dressing, but leave the clear plastic dressing in place until it comes off on its own. You may shower but do not soak your leg. 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
--- NOTE | 2022-06-12 14:01 | PC.CHAP ---
Pastoral Care Encounter/Spiritual Assessment Type of Contact [] Declined vice president [employer] visit [] Patient/Family/Request visit [] Outpatient visit [] Follow-up visit [] Physician referral [] Code/Alert [x] Routine visit [] Staff referral [] Actively dying [] Patient sleeping [] Family support [] [] Out of room [] Palliative care [] [] Receiving care in room [] Pre-surgical visit [] Trauma [] Long length of stay [] ICU visit [] Other: Relational/Emotional Strength [x] Patient feels connected with others/family/visitors/staff [] Distress [] Loneliness/isolation [] Abandonment Spirituality of Patient x[] Person of Sayda [] Attends Scientologist of their Sayda [] Believes in Prayer [] Reads Bible or Jainism materials [] There are Spiritual issues to be addressed Base [employer] Interventions [x] Prayer [] Active listening [] Non-anxious presence [] Spiritual/emotional support [] Crisis/trauma care [] Spiritual counseling [] Bereavement support [] Provided bereavement packet [] Provided Bible/devotional materials [] Provided toy/stuffed animal, coloring book to patient or family member [] Provided Communion [] Anointing/[place] [] Salvation [x] Completed spiritual assessment [] Other: Impact on Illness or Injury [] Angry [] Fearful [] Anxious [] Often cries [] Exhaustion [] Unable to work [] Unable to attend presybeterian [] Unable to walk/stand [] Unable to read [] Unable to drive [] Unable to eat/drink [] Unable to sleep [] Unable to be with family [] Patient intubated [] Other: Summary Time spent with patient 10 min
--- NOTE | 2022-06-12 14:28 | PC.NURSE ---
IV removed intact. Patient tolerated well. Patient is A&Ox3. Respirations even and non-labored room air. Reviewed discharge with patient and . Patient verbalized understanding of discharge instructions and follow up appointments. Patient wheel chaired to private car.
== END 2022-06-12 14:15 | disposition home health service (06) ==
PROVIDERS: Admitting Provider Specialist; PCP Family Medicine Adult Medicine; Visit Provider Specialist
PROC: (CPT 27447; principal; 2022-06-11 07:00)
DX: M17.11 Unilateral primary osteoarthritis, right knee (principal); J44.9 Chronic obstructive pulmonary disease, unspecified; I10 Essential (primary) hypertension; E78.5 Hyperlipidemia, unspecified; E11.40 Type 2 diabetes mellitus with diabetic neuropathy, unspecified; F17.210 Nicotine dependence, cigarettes, uncomplicated
CPT/HCPCS: 27447; 36415; 51702; 73560; 80048; 80053; 81001; 85025; 94640; 97110; 97116; 97161; 97165; C1713; C1776; C9290; G0378; J2704; J3010; J3370; J3490; J3535; J7030; J7050

== ENCOUNTER → 2022-06-25 14:23 | Outpatient (BNVA) | payer MEDICARE, SELFPAY | PROVIDERS: PCP Family Medicine Adult Medicine; Visit Provider Nurse Practitioner Family | DX: Z96.651 Presence of right artificial knee joint (principal) | CPT/HCPCS: 73560; 73565; 99024 ==

== ENCOUNTER 2022-07-18 06:00 | Outpatient (RCR) | payer MEDICARE, SELFPAY | END 2022-07-22 23:59 | disposition home or self-care (01) | LOC: SPT 06:00 | PROVIDERS: PCP Family Medicine Adult Medicine; Visit Provider Specialist | DX: Z96.651 Presence of right artificial knee joint (principal); Z47.1 Aftercare following joint replacement surgery | CPT/HCPCS: 97110; 97161; G0283 ==

== ENCOUNTER 2022-07-23 06:00 | Outpatient (RCR) | payer MEDICARE, SELFPAY | END 2022-08-20 16:40 | disposition home or self-care (01) | LOC: SPT 06:00 | PROVIDERS: PCP Family Medicine Adult Medicine; Visit Provider Specialist | DX: Z96.651 Presence of right artificial knee joint (principal); Z47.1 Aftercare following joint replacement surgery | CPT/HCPCS: 73560; 73565; 97110; 99024 ==

== ENCOUNTER → 2022-10-24 13:00 | Outpatient (BNVA) | payer MEDICARE, SELFPAY | PROVIDERS: PCP Family Medicine Adult Medicine; Visit Provider Nurse Practitioner Family | DX: Z96.651 Presence of right artificial knee joint (principal) | CPT/HCPCS: 73560; 73565; 99214 ==

== ENCOUNTER → 2022-11-13 08:38 | Outpatient (BNVA) | payer MEDICARE, SELFPAY | PROVIDERS: PCP Family Medicine Adult Medicine; Visit Provider Family Medicine Adult Medicine | DX: R73.03 Prediabetes (principal); R94.4 Abnormal results of kidney function studies; I10 Essential (primary) hypertension | CPT/HCPCS: 80053; 83036 ==

== ENCOUNTER → 2023-02-18 07:40 | Outpatient (BNVA) | payer MEDICARE, SELFPAY | PROVIDERS: PCP Family Medicine Adult Medicine; Visit Provider Family Medicine Adult Medicine | DX: E78.5 Hyperlipidemia, unspecified (principal); I10 Essential (primary) hypertension; R73.03 Prediabetes; R94.4 Abnormal results of kidney function studies | CPT/HCPCS: 80053; 80061; 83036; 84443; 85025 ==

== ENCOUNTER → 2023-06-19 13:52 | Outpatient (BNVA) | payer MEDICARE, SELFPAY | PROVIDERS: PCP Family Medicine Adult Medicine; Visit Provider Physician Assistant | DX: Z96.651 Presence of right artificial knee joint | CPT/HCPCS: 73560; 73565; 99213 ==

== ENCOUNTER → 2023-08-20 16:56 | Outpatient (BNVA) | payer MEDICARE, SELFPAY | PROVIDERS: PCP Family Medicine Adult Medicine; Visit Provider Family Medicine Adult Medicine | DX: R19.5 Other fecal abnormalities (principal) | CPT/HCPCS: 82270 ==

== ENCOUNTER → 2024-09-08 14:34 | Outpatient (BNVA) | payer MEDICARE, SELFPAY | PROVIDERS: PCP Family Medicine; Visit Provider Family Medicine | DX: R73.03 Prediabetes (principal); E78.5 Hyperlipidemia, unspecified; I10 Essential (primary) hypertension; Z96.651 Presence of right artificial knee joint; M19.90 Unspecified osteoarthritis, unspecified site; L84 Corns and callosities; F41.9 Anxiety disorder, unspecified; F32.9 Major depressive disorder, single episode, unspecified; E66.9 Obesity, unspecified; N39.490 Overflow incontinence; J44.9 Chronic obstructive pulmonary disease, unspecified; F17.200 Nicotine dependence, unspecified, uncomplicated; Z71.6 Tobacco abuse counseling | CPT/HCPCS: 80053; 80061; 83036; 85025 ==

== ENCOUNTER → 2024-09-30 11:26 | Outpatient (BNVA) | payer MEDICARE, SELFPAY | PROVIDERS: PCP Family Medicine; Visit Provider Nurse Practitioner Family | DX: R05.9 Cough, unspecified (principal); J44.1 Chronic obstructive pulmonary disease with (acute) exacerbation | CPT/HCPCS: 87400; 87426 ==